=== PATIENT | female | born 1985 | race African-American/Black ===

== ENCOUNTER 2019-03-24 02:17 | Emergency (ER) | payer MEDICAID ==
[~2019-03-24] VITALS: Ht 167.6 cm; Wt 55.0 kg
[2019-03-24 03:19] LABS: BASOPHILS % 0.6 % (0.0-2.0); EOSINOPHILS % 1.4 % (0.0-5.0); HEMATOCRIT. 39.9 % (36.0-48.0); HEMOGLOBIN. 12.7 g/dL (12.0-16.0); LYMPHOCYTES % 36.3 % (20.0-50.0); MEAN CORPUSCULAR HEMOGLOBIN 25.2 pg (28.0-32.0); MEAN PLATELET VOLUME 7.7 fl (7.4-10.4); NEUTROPHILS % 53.7 % (40.0-76.0); PLATELET 374 x1000/uL (130-400); RED BLOOD CELL COUNT 5.05 mill/uL (4.2-5.4); RED CELL DISTRIBUTION WIDTH 16.7 % (11.6-14.6)
[2019-03-24 03:19] LABS: CLARITY URINE CLEAR (CLEAR); COLOR URINE YELLOW (YELLOW); KETONES URINE TRACE (NEGATIVE); LEUKOCYTE ESTERASE URINE 2+ (NEGATIVE); NITRITE URINE POSITIVE (NEGATIVE); OCCULT BLOOD URINE NEGATIVE (NEGATIVE); PROTEIN URINE NEGATIVE (NEGATIVE); SPECIFIC GRAVITY URINE 1.027 (1.005-1.030)
[2019-03-24 03:24] LABS: CHLORIDE 107 mEq/L (98-107)
[2019-03-24 03:28] LABS: ETHANOL BLOOD < 10 mg/dL
[2019-03-24 03:35] LABS: *BENZODIAZEPINES SCREEN URINE NEGATIVE (NEGATIVE); *COCAINE SCREEN URINE NEGATIVE (NEGATIVE); METHADONE URINE SCREEN NEGATIVE (NEGATIVE); OPIATES URINE SCREEN NEGATIVE (NEGATIVE); PHENCYCLIDINE URINE SCREEN NEGATIVE (NEGATIVE)
[2019-03-24 03:37] LABS: *AMPHETAMINES SCREEN URINE PRESUMTIVE POSITIVE (NEGATIVE); CANNABINOID URINE SCREEN PRESUMTIVE POSITIVE (NEGATIVE)
[2019-03-24 03:38] LABS: *BARBITURATES SCREEN URINE NEGATIVE (NEGATIVE)
[2019-03-25] MEDS ORDERED: CEPHALEXIN 250MG CAPSULE PO ONE
[2019-03-25] MEDS: CEPHALEXIN 250MG CAPSULE PO SCH ×2 (09:57→18:01)
[2019-03-26] MEDS: CEPHALEXIN 250MG CAPSULE PO SCH ×2 (09:32→17:34)
[2019-03-26 19:43] VITALS: BP 122/79
== END 2019-03-26 20:54 ==
LOC: ER 02:59
DX: F20.9 Schizophrenia, unspecified (principal); N39.0 Urinary tract infection, site not specified; R45.851 Suicidal ideations; F15.10 Other stimulant abuse, uncomplicated; F12.10 Cannabis abuse, uncomplicated
CPT/HCPCS: 36415; 80305; 80320; 81003; 81025; 87077; 87186; 99285; G0480